=== PATIENT | female | born 1960 | race Caucasian/White ===

== ENCOUNTER → 2022-11-17 | Outpatient (CLI) | payer BC ==
--- NOTE | 2022-11-17 15:51 | CT ---
EXAMINATION TYPE: CT chest wo con DATE OF EXAM: 11/17/2022 COMPARISON: HISTORY: interstitial lung disease CT DLP: 1546 mGycm, Automated exposure control for dose reduction was used. CONTRAST: None TECHNIQUE: Axial images were obtained at 1 mm thick sections at 10 mm intervals. This will limit po rtions of the examination which may not be visualized within the [id number]. Images were obtained in the prone and supine views. FINDINGS: Portion of the thyroid visualized is normal. There is increased linear markings in the periphery of the lungs bilaterally. This appears stable bet ween prone and supine imaging. Findings can be compatible pulmonary fibrosis. There is a 0.7 cm nodule in the periphery of the right apex. Series 8 image 40. This is not persisten t on additional imaging and may be related to some more chronic changes that are at the lung apices. No suspicious consolidations or intraparenchymal collections. No enlarged mediastinal or hilar adenopathy is evident. The ascending aorta diameter at the level o f the main pulmonary artery is 3.8 cm. The main pulmonary artery diameter at the bifurcation is 3.[address] sections are obtained through the upper abdomen. Abdomen is essentially unremarkable. IMPRESSIONS: 1. Findings can be compatible with pulmonary fibrosis. 2. There is a 0.7 cm nodule posterior lateral right apex, short-term follow-up in 6 months is recomme nded.
== END | disposition home or self-care (01) ==
LOC: RADCTMAIN 14:14
PROVIDERS: ATTEND Internal Medicine Critical Care Medicine
DX: J84.9 Interstitial pulmonary disease, unspecified (principal); R91.1 Solitary pulmonary nodule
CPT/HCPCS: 71250